=== PATIENT | male | born 1990 | race Hispanic/Latino ===

== ENCOUNTER → 2024-01-14 | Day surgery (SDC) | payer BC ==
[~2024-01-14] MED LIST: AMOX TR-K CLV1 EAC2 PO; DEXMEDETOMIDINE HCL 200 MCG/2 ML VIAL ONE; LEVSIN-SL0.125 MG SL; LIDOCAINE HCL 2% LOCAL INJ 5 ML SDV VIAL INJ ONE; PANTOPRAZOLE SO40 MG PO; PROPOFOL IV EMULSION 10 MG/ML 20 ML VIAL ONE; PROPOFOL IV EMULSION 10 MG/ML 50 ML VIAL IV ONE; ZYRTEC-D TABLE1 EACH PO
[2024-01-14] MEDS: LACTATED RINGER'S 1,000 ML ONE (06:15)
[2024-01-14 08:55] VITALS: BP 112/66; PULSE 63; RESP 16; TEMP 97.1; O2SAT 95
== END | disposition home or self-care (01) ==
LOC: OR 05:56
PROVIDERS: ATTEND Internal Medicine Gastroenterology
DX: Z09 Encounter for follow-up examination after completed treatment for conditions other than malignant neoplasm (principal); Z87.19 Personal history of other diseases of the digestive system; K57.30 Diverticulosis of large intestine without perforation or abscess without bleeding; K64.8 Other hemorrhoids; F17.220 Nicotine dependence, chewing tobacco, uncomplicated; Z01.810 Encounter for preprocedural cardiovascular examination
CPT/HCPCS: 45378; 93005; J2001

== ENCOUNTER → 2024-02-07 | Outpatient (REF) | payer BC ==
[~2024-02-07] MED LIST changes: -DEXMEDETOMIDINE HCL 200 MCG/2 ML VIAL ONE; -LIDOCAINE HCL 2% LOCAL INJ 5 ML SDV VIAL INJ ONE; -PROPOFOL IV EMULSION 10 MG/ML 20 ML VIAL ONE; -PROPOFOL IV EMULSION 10 MG/ML 50 ML VIAL IV ONE
== END ==
LOC: US 08:39
PROVIDERS: ATTEND Nurse Practitioner
DX: K80.20 Calculus of gallbladder without cholecystitis without obstruction (principal); K57.30 Diverticulosis of large intestine without perforation or abscess without bleeding
CPT/HCPCS: 76700